=== PATIENT | female | born 1945 | race Caucasian/White ===

== ENCOUNTER 2021-05-06 14:35 | Outpatient (CLI) | payer MEDICARE, SELFPAY ==
--- NOTE | ~2021-05-06 | MR_ITS ---
EXAMINATION: MR knee LT wo con DATE: 05/06/2021 15:31 INDICATION: Left knee pain TECHNIQUE: Magnetic resonance imaging (MRI) of the left knee was performed without intravenous contra st. Sequences included coronal PD-weighted FSE, coronal PD-weighted FS FSE, sagittal T2-weighted FSE , sagittal PD-weighted FS FSE and axial PD weighted fat saturated FSE. COMPARISON: None. FINDINGS: Medial compartment: Radial tear near the posterior root of the medial meniscus. Suggestion of possible additional longitu dinal horizontal tear plane extending medially into the posterior horn which extends towards the intr a-articular surface but does not definitively contact the articular surface to more definitively aleja ita a tear. Small focus of shallow chondral fissuring at the central aspect of the anterior weightbe aring medial femoral condyle. Small focus of marrow edema surrounding a small thin region of low sign al in the immediate subcortical bone at the medial margin of the medial tibial plateau suggesting str ess reaction/fracture related to altered weight distribution resulting from the meniscal tear. Lateral compartment: Lateral meniscus is normal. Articular cartilage is normal. Patellofemoral compartment: Extensive full/near full-thickness cartilage loss along the lateral patellar facet, apical ridge and medial half of the medial patellar facet as well as the lateral trochlea and cephalad two thirds of t he trochlear groove. There are few scattered foci of underlying increased subarticular signal along b oth the patella and trochlea. Small central subchondral osteophyte at the site of a small focus of ch ondral ulceration at the inferolateral aspect of the medial trochlea. Ligaments and tendons: Anterior and posterior cruciate ligaments are normal. The medial collateral ligament and fibular addie ateral ligament complex are normal. The extensor mechanism is normal. The visualized medial and later al hamstring tendons as well as the iliotibial band are normal. Fluid: Small left knee joint effusion in the medial and lateral gutters of the suprapatellar pouch. 8 mm loo se osteochondral body within a small Xie's cyst. No intra-articular loose osteochondral bodies iden tified. Osseous/other: Normal marrow signal aside from the previously noted subarticular signal changes in the patellofemora l compartment and the likely stress reaction/subarticular stress fracture at the medial tibial platea u. No pathologic marrow replacing process. IMPRESSION: 1. Tear at the posterior horn of the medial meniscus including a radial component near the posterior root and possible longitudinal horizontal tear plane extending more medially in the posterior horn. 2. 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 3. Mild osteoarthritis in the medial compartment with single small focus of moderate grade chondromal acia. 4. Marrow edema surrounding a small region of decreased signal in the immediately subarticular bone m edial rim of the medial tibial plateau which suspicious for stress injury/subarticular stress fractur e related to altered weight distribution resulting from the meniscal tear. Reviewed, dictated and finalized at location A. EACH ANALYST IMPRESSION: 1. Tear at the posterior horn of the medial meniscus including a radial compone nt near the posterior root and possible longitudinal horizontal tear plane exte nding more medially in the posterior horn. 2. Severe patellofemoral osteoarthritis with extensive high-grade chondromalaci a. 3. Mild osteoarthritis in the medial compartment with single small focus of mod erate grade chondromalacia. 4. Marrow edema surrounding a small region of decreased signal in the immediate ly subarticular bone medial
== END 2021-05-06 14:36 | disposition home or self-care (01) ==
LOC: ANHIMG 14:39
PROVIDERS: PCP Internal Medicine; Visit Provider Nurse Practitioner
DX: S83.242A Other tear of medial meniscus, current injury, left knee, initial encounter (principal); X58.XXXA Exposure to other specified factors, initial encounter; M17.12 Unilateral primary osteoarthritis, left knee
CPT/HCPCS: 73721

== ENCOUNTER 2022-03-18 10:00 | Outpatient (CLI) | payer MEDICARE, SELFPAY ==
[2022-03-18 18:59] LABS: Basophils Percent Auto 0.4 % (0.2-1.2); Eosinophils Absolute Auto 0.1 K/mm3 (0-0.3); Eosinophils Percent Auto 0.9 % (0-4.4); Hemoglobin 13.7 g/dL (12.0-15.0); Immature Granulocyte Absolute 0.02 K/mm3 (0.00-0.031); Immature Granulocyte Percent A 0.3 % (0-0.5); Lymphocytes Percent Auto 30.8 % (18.3-44.2); Mean Corpuscular HGB Conc 31.9 g/dl (32-36); Mean Corpuscular Hemoglobin 29.1 pg (26-34); Mean Corpuscular Volume 91.5 fl (80-100); Mean Platelet Volume 12.3 fl (7.4-10.4); Monocytes Absolute Auto 0.6 K/mm3 (0.1-0.6); Neutrophils Absolute Auto 4.5 K/mm3 (1.3-6.7); Neutrophils Percent Auto 59.6 % (45.5-73.1); Platelet Count Result 283 k/mm3 (150-375); Red Cell Distribution Width 13.5 % (11.5-14.5); White Blood Count 7.5 K/mm3 (4.5-10.0)
[2022-03-18 19:17] LABS: Alanine Aminotransferase 22 U/L (6-35); Albumin Level 4.7 g/dL (3.5-5.1); Alkaline Phosphatase 99 U/L (38-126); Anion Gap 11 mmol/L (8-16); Aspartate Amino Transferase 41 U/L (14-36); Bilirubin,Total 0.5 mg/dL (0.2-1.3); Blood Urea Nitrogen 22 mg/dL (7-17); Calcium 9.7 mg/dL (8.4-10.2); Carbon Dioxide 29 mmol/L (22-30); Chloride 100 mmol/L (98-107); Cholesterol 244 mg/dL (0-200); Estimated Glomerular Filt Rate 54; Glucose 120 mg/dL (65-110); HDL Direct 64 mg/dL; Potassium 4.8 mmol/L (3.4-5.0); Sodium 140 mmol/L (137-145); Triglycerides 174 mg/dL (<150)
[2022-03-18 19:29] LABS: LDL Cholesterol Direct 115 mg/dL
[2022-03-18 20:55] LABS: Hemoglobin A1C 6.8 % (<5.7)
[2022-03-19 00:10] LABS: Vitamin D 25 Hydroxy 42.5 ng/mL
== END 2022-03-18 10:01 | disposition home or self-care (01) ==
LOC: ANHGOSHLAB 10:04
PROVIDERS: PCP Internal Medicine; Visit Provider Nurse Practitioner
DX: E11.40 Type 2 diabetes mellitus with diabetic neuropathy, unspecified (principal); E55.9 Vitamin D deficiency, unspecified; Z13.29 Encounter for screening for other suspected endocrine disorder
CPT/HCPCS: 36415; 80053; 80061; 82306; 83036; 85025

== ENCOUNTER → 2022-03-18 10:18 | Outpatient (CLI) | payer MEDICARE, SELFPAY ==
--- NOTE | ~2022-03-18 | XR_ITS ---
XR lumbar spine 2-3V DATE: 03/18/2022 10:55 INDICATION: Left hip pain, chronic low back pain. No injury. TECHNIQUE: AP, lateral, coned lateral lumbosacral views COMPARISON: None FINDINGS: There is diffuse osteopenia. There is mild thoracolumbar levoscoliosis. There is a transitional fifth lumbar vertebra with sacralization on the left and lumbarization on the right. This may be a source of chronic low back pain. There is degenerative change at the apophyseal joints with associated minimal grade 1 anterolisthesis at L3-4. There is mild degenerative disc disease at L3-4. There is severe degenerative disc disease at L4-5, with minimal associated retrolisthesis. The sacroiliac joints are intact. IMPRESSION: Transitional lumbosacral vertebra Degenerative disc disease, but is severe at L4-5 Osteopenia Mild scoliosis Reviewed, dictated and finalized at location B. LITY ENGINEER
--- NOTE | ~2022-03-18 | XR_ITS ---
XR hip LT min 2V DATE: 03/18/2022 10:54 INDICATION: Left hip pain. No injury. TECHNIQUE: AP and lateral views COMPARISON: 02/10/2019 left hip FINDINGS: No fracture or dislocation, avascular necrosis or bone destruction is detected. Left hip wei int space appears well preserved. Normal alignment at the pubic symphysis and sacral iliac joints. Transitional lumbosacral vertebra and severe degenerative disc disease at L4-5. IMPRESSION: Negative left hip Reviewed, dictated and finalized at location B. LY TECH IMPRESSION: Negative left hip
== END ==
PROVIDERS: PCP Nurse Practitioner; Visit Provider Nurse Practitioner
DX: M25.552 Pain in left hip (principal); M54.50 Low back pain, unspecified; M51.36 Other intervertebral disc degeneration, lumbar region; M85.88 Other specified disorders of bone density and structure, other site; M41.9 Scoliosis, unspecified
CPT/HCPCS: 72100; 73502

== ENCOUNTER → 2022-04-09 07:40 | Outpatient (CLI) | payer MEDICARE, SELFPAY ==
--- NOTE | ~2022-04-09 | MR_ITS ---
MRI of the lumbar spine Clinical History: Back pain Technique: Axial T2-weighted images, and sagittal T1-weighted, T2-weighted, and T2 fat-sat images wer e acquired. COMPARISON: 10/15/2015 Findings: There is no fracture in the lumbar spine. Probable minimal grade 1 anterolisthesis of L3 ov er L4. No focal or otherwise suspicious bone marrow signal abnormality identified. At L1-L2, there is no disc bulge or herniation. There is minimal facet arthropathy. No spinal canal s tenosis or definite neural foraminal narrowing. At L2-L3, there is minimal disc bulge and minimal facet arthropathy. There is probable minimal latera l recess stenosis bilaterally. There is moderate bilateral neural foraminal narrowing. At L3-L4, there is a probable disc protrusion at the right paracentral to right foraminal region with advanced facet arthropathy. These factors contribute to focally severe thecal sac compression. There is moderate to severe right neural foraminal narrowing and minimal left neural foraminal narrowing. At L4-L5, there is a focal disc extrusion at the left foraminal region, with probable underlying mini mal disc bulge. There may be impingement of descending left L5-S1 level nerve root. There is left lat eral recess stenosis. There is moderate left neural foraminal narrowing. Right neural foramen preserv ed. At L5-S1, there is no significant disc bulge or herniation. There is minimal facet joint degenerative change. No spinal canal stenosis or definite neural foraminal narrowing. Paravertebral soft tissues are unremarkable. Impression: Left foraminal disc extrusion at L4-L5, with associated left lateral recess stenosis, moderate left n eural foraminal narrowing, and possible impingement of the descending left L5-S1 level nerve root. Disc protrusion at L4-L5, with associated facet joint degenerative change, resulting in focal severe thecal sac compression and bilateral neural foraminal narrowing, right worse than left. Moderate bilateral neural foraminal narrowing at L2-L3 with probable lateral recess stenosis. Minimal grade 1 anterolisthesis of L3 over L4. Reviewed, dictated and finalized at [facility]. ECTION COORDINATOR Impression: Left foraminal disc extrusion at L4-L5, with associated left lateral recess arian nosis, moderate left neural foraminal narrowing, and possible impingement of th e descending left L5-S1 level nerve root. Disc protrusion at L4-L5, with associated facet joint degenerative change, resu lting in focal severe thecal sac compression and bilateral neural foraminal leanna rowing, right worse than left. Moderate bilateral neural foraminal narrowing at L2-L3 with probable lateral re cess stenosis. Minimal grade 1 anterolisthesis of L3 over L4.
== END ==
PROVIDERS: PCP Internal Medicine; Visit Provider Nurse Practitioner
DX: M51.26 Other intervertebral disc displacement, lumbar region (principal)
CPT/HCPCS: 72148

== ENCOUNTER → 2022-06-09 07:44 | Outpatient (CLI) | payer MEDICARE, SELFPAY ==
--- NOTE | ~2022-06-09 | XR_ITS ---
XR lumbar spine min 4V 06/09/2022 08:44 Indication: Low back pain Procedure: 5 views lumbar spine Comparison: 03/18/2022 Findings: There is a transitional L5 vertebra. There is disc narrowing at all lumbar levels most adva nced at L4-5. There is grade 1 degenerative spondylolisthesis listhesis at L3-4. There is multilevel facet hypertrophy from L3-4 through L5-S1. No acute fracture or traumatic malalignment. Normal lumbar lordosis. No significant scoliosis. Pedicles intact. Sacral foramen are symmetric. Impression: 1: Stable moderate-severe lumbar spondylosis. Reviewed, dictated and finalized at location B. UREMENT ADVISOR Impression: 1: Stable moderate-severe lumbar spondylosis.
== END ==
PROVIDERS: PCP Internal Medicine; Visit Provider Neurological Surgery
DX: M48.061 Spinal stenosis, lumbar region without neurogenic claudication (principal); M47.896 Other spondylosis, lumbar region
CPT/HCPCS: 72110

== ENCOUNTER 2022-07-23 10:00 | Outpatient (RCR) | payer MEDICARE, SELFPAY ==
--- NOTE | 2022-06-25 17:20 | PTOPEVAL1 ---
Assessment and note entered by Ezequiel Rascon, PT, DPT Evaluation Information Assessment Status Evaluation Diagnosis Low back pain Onset chronic Subjective Information Pt states a long history of low back pain and complete prior PT in 2017. She states she still has pain but it comes and goes. She states she does not think therapy will work for her. She states last year she tore her meniscus in her L knee, while doing core exercises last year. Pt states she saw neuro who referring her to therapy. She states if therapy does not work she will follow up with pain management. She states she can touch her toes but cannot stand and bend over to wash dished. Reported Pain Level Pain Score 0: Self Report Assessment PT Clinical Summary Faviola presents to therapy today for her initial evaluation with a diagnosis of low back pain. Today she demonstrates good LE strength and ROM. She demonstrates good functional mobility but her standing and walking tolerance is limited d/t pain . Today she demonstrates moderated amounts of tightness and increased soft tissue density throughout her entire R glute region and lumbar paraspinals. She demonstrates decreased core strength with a poor ability to engage her core during transfers or functional tasks. Skilled physical therapy services are indicated to address the soft tissue restrictions, improve her core strength, education on body mechanics with functional lifts, and to promote unlimited mobility. Plan of Care Interventions Electrical Stimulation,Gait Training,Hot Pack/Cold Pack,Manual Therapy,Neuro Re-education,Patient/ Caregiver Educati,Therapeutic Activities, Therapeutic Exercise PT Services Indicated Yes Treatment Frequency and 2x/wk for 4 wks Duration These treatments will address the objective and functional deficits as defined above. The patient will be advanced safely and appropriately in order for the patient to progress towards his/her prior level of function. Additional exercises will be introduced and as well as a comprehensive home exercise program upon discharge, if needed, ?to ensure carryover of functional gains achieved in the clinic. This treatment plan has been reviewed and agreement upon by the patient.
--- NOTE | 2022-07-18 08:04 | PCPTNOTE ---
Patient has another appointment this date and has to cancel appointment.
--- NOTE | 2022-07-23 10:36 | PTOPDC ---
Assessment and note entered by Ezequiel Rascon, PT, DPT Evaluation Information Assessment Status Discharge Diagnosis Low back pain Onset chronic Subjective Information Pt states she feels like her leg has gotten stronger since starting therapy. She reports no back flair ups in the last month and was having about 1 a week prior to starting PT. Reported Pain Level Pain Score 0: Self Report Assessment PT Clinical Summary Faviola presents to therapy today for her progress report following 5 visits to treat her low back pain. Today she demonstrates improved LE strength, improved lumbar active ROM, improve body awareness, and improved movement mechanics. She reports no back pain in the last week. She has met or progressed well towards all of her therapy goals and will be discharged at this time to continue her HEP as instructed. Plan of Care PT Services Indicated No
== END 2022-07-23 15:43 | disposition home or self-care (01) ==
LOC: ANHGOSHPT 10:00
PROVIDERS: PCP Internal Medicine; Visit Provider Neurological Surgery
DX: M48.061 Spinal stenosis, lumbar region without neurogenic claudication (principal)
CPT/HCPCS: 97110; 97112; 97140; 97161

== ENCOUNTER 2023-08-25 08:18 | Outpatient (CLI) | payer MEDICARE, SELFPAY ==
--- NOTE | ~2023-08-25 | XR_ITS ---
EXAMINATION: XR chest 2V DATE: 08/25/2023 09:19 INDICATION: Hypertension. Spinal stenosis. Preop. TECHNIQUE: Frontal and lateral views of the chest were obtained on 3 radiographs. COMPARISON: Chest 2 views 09/22/2015 FINDINGS: There is no pneumonia, pleural effusion, or pneumothorax. The heart size is normal. IMPRESSION: 1. No acute cardiopulmonary disease. Reviewed, dictated and finalized at location A.
--- NOTE | 2023-08-25 08:24 | ECG_ITS ---
SEE SCANNED COPY FOR CONFIRMED REPORT. MTDD
[2023-08-25 08:52] LABS: Hemoglobin 12.8 g/dL (12.0-15.0); Mean Corpuscular Hemoglobin 29.3 pg (26-34); Mean Corpuscular Volume 91.5 fl (80-100); Mean Platelet Volume 10.8 fl (7.4-10.4); Platelet Count Result 261 k/mm3 (150-375); Red Blood Count 4.37 M/mm3 (4.2-5.4); Red Cell Distribution Width 13.2 % (11.5-14.5); White Blood Count 8.8 K/mm3 (4.5-10.0)
[2023-08-25 09:03] LABS: Prothrombin Time 13.5 Seconds (11.1-14.7)
[2023-08-25 09:10] LABS: Alanine Aminotransferase 15 U/L (6-35); Albumin Level 4.5 g/dL (3.5-5.1); Alkaline Phosphatase 86 U/L (38-126); Anion Gap 7 mmol/L (4-12); Aspartate Amino Transferase 21 U/L (14-36); Bilirubin,Total 0.6 mg/dL (0.2-1.3); Blood Urea Nitrogen 24 mg/dL (7-17); Carbon Dioxide 27 mmol/L (22-30); Chloride 106 mmol/L (98-107); Estimated Glomerular Filt Rate 48; Glucose 114 mg/dL (65-110); Potassium 4.4 mmol/L (3.4-5.0); Sodium 140 mmol/L (137-145)
== END 2023-08-25 08:19 | disposition home or self-care (01) ==
LOC: ANHSURGERY 08:22
PROVIDERS: PCP Nurse Practitioner; Visit Provider Anesthesiology Pain Medicine
DX: M48.062 Spinal stenosis, lumbar region with neurogenic claudication (principal); M54.9 Dorsalgia, unspecified; E11.59 Type 2 diabetes mellitus with other circulatory complications; I15.2 Hypertension secondary to endocrine disorders; R74.8 Abnormal levels of other serum enzymes
CPT/HCPCS: 36415; 71046; 80053; 85027; 85610; 93005

== ENCOUNTER 2023-10-08 08:27 | Outpatient (CLI) | payer MEDICARE, SELFPAY ==
--- NOTE | ~2023-10-08 | NM_ITS ---
EXAMINATION: NM mireya stress w perfusion DATE: 10/08/2023 10:22 INDICATION: Abnormal EKG TECHNIQUE: Rest images were obtained following intravenous administration of 9.1 mCi Tc99m tetrofosmi n (Myoview). The patient was infused intravenously with Lexiscan (Regadenoson). Then, 30.1 mCi Tc99m tetrofosmin (Myoview) was administered intravenously, and stress images were obtained in the supine p osition. Additional repeat post stress images were obtained in the prone position. Data was reconstru cted into short axis and horizontal and vertical long axis SPECT images. Gated SPECT images were also obtained. COMPARISON: None. FINDINGS: There is likely breast attenuation artifact along the anterior and anterolateral roth on b oth the rest and stress imaging obtained in the supine position which normalizes on the post stress i mages obtained in the prone position. There is additional likely diaphragmatic attenuation artifact s een on the post stress but not the rest images obtained in the supine position which similarly largel y normalizes on the post stress imaging obtained in the prone position. There is a persistent small m ild perfusion defect at the apex and inferoapical segment on the prone post stress imaging which coul d represent mild ischemia. The relative decreased perfusion however is not evident at this location o n the gated post stress imaging during systole and favor additional residual attenuation artifact. Th ere is normal left ventricular chamber size, wall motion and ejection fraction. Left ventricular eje ction fraction measures >70%. IMPRESSION: 1. Extensive breast and diaphragmatic attenuation artifact on the imaging obtained in the supine posi tion which complicates interpretation. Post stress imaging obtained in the prone position demonstrate only a small mild perfusion defect at the apical and inferoapical segment which for reasons as detai led above favor residual attenuation artifact over mild ischemia. 2. Left ventricular ejection fraction measuring >70%. Reviewed, dictated and finalized at location A. IMPRESSION: 1. Extensive breast and diaphragmatic attenuation artifact on the imaging obtai isaiah in the supine position which complicates interpretation. Post stress imagin g obtained in the prone position demonstrate only a small mild perfusion defect at the apical and inferoapical segment which for reasons as detailed above fav or residual attenuation artifact over mild ischemia. 2. Left ventricular ejection fraction measuring >70%.
--- NOTE | 2023-10-08 09:01 | EST_ITS ---
Patient Info Name: Faviola De La Cruz Age: 78 years : 1945 Gender: Female Ht: 66 in Wt: 233 lbs BSA: 2.27 m2 HR: 74 bpm BP: 141 / 93 mmHg Heart Rhythm: Sinus Rhythm Exam Date: 10/08/2023 9:17 AM Exam Location: Echo Lab Patient Status: Outpatient Admit Date: 10/08/2023 Staff Ordering Physician: Maureen Norwood NP Attending Provider: Maureen Norwood NP Exercise Technologist: Jannie Jensen CT Exercise Physician: Rodney Pedroza DO Exam Type: CA stress mireya w NM Study Info Indications R94.31 - Abnormal electrocardiogram ECG EKG A regadenoson stress test was performed. Summary 1. 1. Negative lexiscan stress test for ischemic ST changes by ECG criteria. 2. 2. Stable hemodynamics throughout the test. 3. 3. Nuclear scan to follow and will be reported separately. Please correlate with it. 4. 4. Patient informed of the above results. Protocol: Lexiscan Stress ECG Details Stage: REST Duration (min): 1 min : 3 sec HR (bpm): 76 SBP (mmHg): 141 DBP (mmHg): 93 Stage: REST Duration (min): 6 min : 31 sec HR (bpm): 68 SBP (mmHg): 141 DBP (mmHg): 93 Stage: STAGE 1 Duration (min): 1 min : 0 sec HR (bpm): 85 SBP (mmHg): 141 DBP (mmHg): 93 Stage: RECOVERY Duration (min): 1 min : 0 sec HR (bpm): 82 SBP (mmHg): 141 DBP (mmHg): 93 Stage: RECOVERY Duration (min): 2 min : 0 sec HR (bpm): 80 SBP (mmHg): 141 DBP (mmHg): 93 Stage: RECOVERY Duration (min): 3 min : 0 sec HR (bpm): 79 SBP (mmHg): 115 DBP (mmHg): 88 Stage: RECOVERY Duration (min): 3 min : 49 sec HR (bpm): 83 SBP (mmHg): 115 DBP (mmHg): 88 Rest HR: 68 bpm Peak HR: 86 bpm Rest Sys BP: 141 mmHg Peak Sys BP: 115 mmHg Max Pred HR: 143 bpm % Max Pred HR: 60 % Target HR: 122 bpm Max RPP: 9,890 bpm*mmHg Termination Reason: Completed protocol Cardiac Symptoms: Shortness of breath Total Time: 1 min : 0 sec Rest Ma BP: 93 mmHg Peak Ma BP: 88 mmHg Total Dose: 0.4 mg Resting ECG Sinus rhythm. Stress ECG No ST changes. Arrhythmias None. Report Signatures
== END 2023-10-08 08:28 | disposition home or self-care (01) ==
PROVIDERS: PCP Nurse Practitioner; Visit Provider Nurse Practitioner
DX: R94.31 Abnormal electrocardiogram [ECG] [EKG] (principal)
CPT/HCPCS: 78452; 93017; A9502; J2785

== ENCOUNTER 2023-10-20 00:35 | Day surgery (SDC) | payer MEDICARE, SELFPAY ==
[2023-10-06 14:14] VITALS: BMI 37.7
[2023-10-20 07:43] VITALS: BP 146/78; PULSE 87; RESP 18; TEMP 36.1; O2SAT 100
[2023-10-20 08:00] LABS: Glucose Point of Care 125 mg/dl (65-105)
[2023-10-20] MEDS: LACTATED RINGERS 1,000 ML 150 ML IV CONT (08:00)
--- NOTE | 2023-10-20 08:47 | WPDANESEPPF ---
Anes - Initial Pre Proc Eval Procedure: Operation Date: 10/20/23 09:00 Proposed Procedures p Colonoscopy - Jeremi Artis MD Date/Time: 10/20/23 08:47 Surgeon: Jeremi Artis MD Pre Op Diagnosis: Personal history colon polyps Patient Data Age: 78 Gender: F Height: 1.68 m Weight: 106.7 kg Last Vital Signs Temp 97 F L 10/20/23 07:43 Pulse 87 10/20/23 07:43 Resp 18 10/20/23 07:43 BP 146/78 H 10/20/23 07:43 Pulse Ox 100 10/20/23 07:43 O2 Del Method Room Air 10/20/23 07:43 Allergies Allergy/AdvReac Type Severity Reaction Status Date / Time shellfish derived Allergy Intermediate Hives Verified 10/20/23 07:43 Sulfa (Sulfonamide Allergy Unknown as child Verified 10/20/23 07:43 Antibiotics) Home Medications Medication Instructions Recorded Confirmed Type omeprazole 20 mg capsule,delayed 20 mg PO DAILY 03/24/19 10/06/23 History release cholecalciferol (vitamin D3) 25 25 mcg PO DAILY 08/01/19 10/06/23 History mcg (1,000 unit) capsule methimazole 5 mg tablet (Tapazole) 5 mg PO .COMPLEX #0 tabs 08/01/19 10/06/23 Rx magnesium 200 mg tablet 400 mg PO DAILY 05/10/21 10/06/23 History B-complex with vitamin C 1 cap PO DAILY 03/18/22 10/06/23 History acetaminophen 650 mg 650 mg PO Q12H PRN Pain 08/21/23 10/06/23 History tablet,extended release atorvastatin 10 mg tablet 10 mg PO QHS #90 tabs 09/03/23 10/06/23 Rx lisinopril 5 mg tablet 5 mg PO DAILY #90 tabs 09/25/23 10/06/23 Rx metformin 500 mg tablet See Rx Instructions PO .COMPLEX 09/28/23 10/06/23 Rx #180 tabs Laboratory Tests 10/20/23 07:56 POC Capillary Glucose 125 H mg/dl (65-105) Patient hx anesthesia problems: none Family hx anesthesia problems: none Results Review: All pre-operative results and documents have been reviewed as part of the pre-operative evaluation. [facility] Past Medical History Medical History Arthritis Back pain Bilateral cataracts High blood pressure History of back problems History of thyrotoxicosis Nontoxic multinodular goiter Obesity Osteopenia Tear of meniscus of left knee Type 2 diabetes mellitus with diabetic neuropathy, unspecified Surgical History Surgical History History of colonoscopy (~2013) History of hysterectomy 12/2015 and 03/01/2020. Dr. Murray Mcpherson. History of tonsillectomy (~1951) History of tubal ligation (~1976) Family History Family History Mother Carcinoma of colon Patient's mother is Diabetes mellitus Sibling Family history of diabetes mellitus in first degree relative Diabetes mellitus Family history of malignant neoplasm of testis Father Patient's father is Other Family history of obesity Social History Social History Smoking status: Never smoker Alcohol intake: current Drinks per week: 1 Alcohol use details: 5 x per year Substance use: never Substance use type: does not use Lack of Transportation: No Lack of Food: Never True Current Housing: I Have Housing Concerned About Future Housing: No Difficulty Paying Gas/Electric Bills: No Difficulty Paying for Meds: No Currently Unemployed: No Education: High School Diploma/GED Difficulty w/ Childcare or Family Care: No Living arrangements: with family Occupation/Education: retired Gender identity (if verbalized by the patient): Female Spiritual care concerns: No Anes - Eval Final PreProcedure Day of Procedure 10/20/23 08:47 Patient weight: obese Heart: regular rate and rhythm Lungs: clear to auscultation Airway: Mallampati scale class III Neurological: alert and oriented Last oral intake: >/= 8 hours ASA classification: III Emergent: no Anesthetic plan: proceed An
--- NOTE | 2023-10-20 08:48 | PM.HPGS ---
History of Present Illness History of Present Illness Consent: Risks, benefits, and alternatives have been discussed and questions answered. Patient agrees to proceed with procedure. Chief complaint: Personal history colon polyps Narrative: Faviola De La Cruz is a 78 year old female with colon polyp 10 years ago Review of Systems Review of Systems: All systems reviewed & are unremarkable except as noted in HPI and below PMFSH Past Medical History Medical History Arthritis Back pain Bilateral cataracts High blood pressure History of back problems History of thyrotoxicosis Nontoxic multinodular goiter Obesity Osteopenia Tear of meniscus of left knee Type 2 diabetes mellitus with diabetic neuropathy, unspecified Surgical History Surgical History History of colonoscopy (~2013) History of hysterectomy 12/2015 and 03/01/2020. Dr. Murray Mcpherson. History of tonsillectomy (~1951) History of tubal ligation (~1976) Family History Family History Mother Carcinoma of colon Patient's mother is Diabetes mellitus Sibling Family history of diabetes mellitus in first degree relative Diabetes mellitus Family history of malignant neoplasm of testis Father Patient's father is Other Family history of obesity Social History Social History Smoking status: Never smoker Alcohol intake: current Drinks per week: 1 Alcohol use details: 5 x per year Substance use: never Substance use type: does not use Lack of Transportation: No Lack of Food: Never True Current Housing: I Have Housing Concerned About Future Housing: No Difficulty Paying Gas/Electric Bills: No Difficulty Paying for Meds: No Currently Unemployed: No Education: High School Diploma/GED Difficulty w/ Childcare or Family Care: No Living arrangements: with family Occupation/Education: retired Gender identity (if verbalized by the patient): Female Spiritual care concerns: No Meds Home Medications and Allergies Home Medications Medication Instructions Recorded Confirmed Type omeprazole 20 mg capsule,delayed 20 mg PO DAILY 03/24/19 10/06/23 History release cholecalciferol (vitamin D3) 25 25 mcg PO DAILY 08/01/19 10/06/23 History mcg (1,000 unit) capsule methimazole 5 mg tablet (Tapazole) 5 mg PO .COMPLEX #0 tabs 08/01/19 10/06/23 Rx magnesium 200 mg tablet 400 mg PO DAILY 05/10/21 10/06/23 History B-complex with vitamin C 1 cap PO DAILY 03/18/22 10/06/23 History acetaminophen 650 mg 650 mg PO Q12H PRN Pain 08/21/23 10/06/23 History tablet,extended release atorvastatin 10 mg tablet 10 mg PO QHS #90 tabs 09/03/23 10/06/23 Rx lisinopril 5 mg tablet 5 mg PO DAILY #90 tabs 09/25/23 10/06/23 Rx metformin 500 mg tablet See Rx Instructions PO .COMPLEX 09/28/23 10/06/23 Rx #180 tabs Allergies Allergy/AdvReac Type Severity Reaction Status Date / Time shellfish derived Allergy Intermediate Hives Verified 10/20/23 07:43 Sulfa (Sulfonamide Allergy Unknown as child Verified 10/20/23 07:43 Antibiotics) Vital Signs Vital Signs - 24 hr 10/20/23 07:43 Temperature 97 F L Pulse Rate 87 Respiratory Rate 18 Blood Pressure 146/78 H Pulse Oximetry 100 Oxygen Delivery Room Air Exam Const: General: comfortable and no acute distress HENMT: Face/Nose/Sinus: Normal nares present Eyes: General: appearance normal, both eyes and all related structures Neck: Neck: no JVD Resp: Auscultation: clear to auscultation bilaterally Cardio: Rate: regular rate Rhythm: regular rhythm GI: Inspection: non-distended GI Palp: Yes Soft to palpation Skin: General skin exam: normal color Neuro: General: gait normal Speech: normal speech Extrem: General: normal to inspecti
[2023-10-20 09:08] VITALS: BP 116/66; PULSE 68; RESP 18; O2SAT 97
[2023-10-20 09:18] VITALS: BP 123/76; PULSE 60; RESP 18; O2SAT 100
[2023-10-20 09:28] VITALS: BP 149/72; PULSE 65; RESP 18; O2SAT 96
== END 2023-10-20 09:45 | disposition home or self-care (01) ==
PROVIDERS: PCP Nurse Practitioner; Referring Provider Internal Medicine; Visit Provider Internal Medicine Gastroenterology
PROC: 0DJD8ZZ Inspection of Lower Intestinal Tract, Via Natural or Artificial Opening Endoscopic (ICD-10-PCS; CPT 45378; principal; 2023-10-20 09:00)
DX: Z12.11 Encounter for screening for malignant neoplasm of colon (principal); D12.3 Benign neoplasm of transverse colon; D12.5 Benign neoplasm of sigmoid colon; K64.8 Other hemorrhoids; I10 Essential (primary) hypertension; E11.9 Type 2 diabetes mellitus without complications; E66.9 Obesity, unspecified; Z68.38 Body mass index [BMI] 38.0-38.9, adult; Z79.84 Long term (current) use of oral hypoglycemic drugs; Z98.890 Other specified postprocedural states; Z98.51 Tubal ligation status; Z80.43 Family history of malignant neoplasm of testis; Z80.0 Family history of malignant neoplasm of digestive organs
CPT/HCPCS: 45385; 82948; 88305; J2704; J7120

== ENCOUNTER 2023-12-14 01:30 | Day surgery (SDC) | payer MEDICARE, SELFPAY ==
--- NOTE | 2023-12-11 11:15 | PC.NURSE ---
Report to the Outpatient Waiting Room, entrance under the green pavilion located off [facility], at time __6:00 AM on date 12/14/23 . Planned Procedure Time: _7:30 AM .? Time changes happen often and if your time is changed the preop area will call you the afternoon before. - You and your visitor will be asked to self-screen and do not enter if you have any COVID symptoms. Please call surgeon if you need to reschedule. - A mask is optional within the hospital at this time. NOTHING TO EAT OR DRINK AFTER MIDNIGHT PER DR DUBON Take only the following medications with a SIP of water on the morning of surgery: __METHIMAZOLE DO NOT STOP ANY OF YOUR OTHER PRESCRIPTION MEDICATIONS PRIOR TO SURGERY EXCEPT THE FOLLOWING Medications to discontinue per physician ____HOLD ALL VITAMINS AND SUPPLEMENTS 3 DAYS PRE OP STATES LAST DOSE 12/11/23___ Please no make-up, nail wolof, hairspray, perfume, deodorant, or body powder the day of surgery.? No jewelry (including any body piercings) or valuables the day of surgery, leave them at home.? Please take a shower or bath the night before AND the morning of, surgery with an antibacterial soap.PER DR DUBON? Wear comfortable, loose fitting clothing.? Children are encouraged to wear pajamas. - Jewelry must be removed prior to entering the operating room.? Rings and piercings that are not removed may be cut off. - The hospital will not accept responsibility for valuables.? - Please leave all valuables, including medications, at home the day of surgery. If you are going home after surgery, a licensed oil truck driver must drive you home.? - NO public transportation without another adult if you receive anesthesia. - We recommend that an adult stay with you for 24 hours following discharge. - We also recommend that you do not drive, make important decision, drink alcoholic beverages, or take any drugs that were not prescribed by your health care provider for at least 24 hours after your discharge time. For Pediatric surgeries, we recommend two adults accompany the child home. Follow any additional instructions given to you from your surgeon. Telephone instructions given to __PATIENT and asked if any additional questions and then verbalized understanding. Patient advised to call surgeon office or pre surgery nurse liaison [phone] if any additional questions.
[2023-12-11 11:25] VITALS: BMI 37.5
[2023-12-14] VITALS (8 sets, daily range): BP systolic 139–153; BP diastolic 59–86; PULSE 66–93; RESP 14–20; TEMP 36.2; O2SAT 98–100; BMI 38.7
--- NOTE | ~2023-12-14 | XR_ITS ---
EXAMINATION: XR fluoroscopy no charge DATE: 12/14/2023 09:14 INDICATION: Lumbar spondylosis. TECHNIQUE: 18 intraoperative fluoroscopic views of the lumbar spine were obtained. I was not present. Fluoroscopy exposure time was 4 minutes and 33 seconds. COMPARISON: Lumbar spine radiographs 06/09/2022 FINDINGS: Instruments overlie the posterior elements of the lumbar spine. There is severe lumbar spon dylosis. IMPRESSION: 1. Severe lumbar spondylosis. Reviewed, dictated and finalized at location A.
--- NOTE | 2023-12-14 05:35 | PM.HPGS ---
History of Present Illness History of Present Illness Consent: Risks, benefits, and alternatives have been discussed and questions answered. Patient agrees to proceed with procedure. Chief complaint: Lumbar stenosis with neurogenic claudication Narrative: Faviola De La Cruz is a 78 year old female with chronic, recalcitrant and disabling bilateral lumbar and lower extremity pain secondary to degenerative spondylosis with stenosis of the lumbar spine and ligamentum flavum hypertrophy with failure to respond to aggressive conservative measures including PT, oral and topical analgesics, opioid and nonopioid analgesics, rest, time and activity/behavioral modification over the past 1-2 years who presents for bilateral L2-3, L3-4 minimally invasive lumbar decompression with possible epidurogram under fluoroscopic guidance. Review of Systems Review of Systems: Patient denies any new infectious, allergic, cardiopulmonary, neurologic or constitutional symptoms or changes in activity tolerance or exercise capacity including new or progressive SOB/HAQUE, peripheral edema, productive cough, dysuria, nausea/vomiting, diarrhea, weight change, fevers/chills/night sweats, new or progressive neurologic deficit, cognitive or mood changes since last seen, except as documented in the HPI. All systems reviewed & are unremarkable except as noted in HPI and below PMFSH Past Medical History Medical History Arthritis Back pain Bilateral cataracts High blood pressure History of back problems History of thyrotoxicosis Nontoxic multinodular goiter Obesity Osteopenia Tear of meniscus of left knee Type 2 diabetes mellitus with diabetic neuropathy, unspecified Surgical History Surgical History History of colonoscopy (~2013) History of hysterectomy 12/2015 and 03/01/2020. Dr. Murray Mcpherson. History of tonsillectomy (~1951) History of tubal ligation (~1976) Family History Family History Mother Carcinoma of colon Patient's mother is Diabetes mellitus Sibling Family history of diabetes mellitus in first degree relative Diabetes mellitus Family history of malignant neoplasm of testis Father Patient's father is Other Family history of obesity Social History Social History Smoking status: Never smoker Alcohol intake: current Drinks per week: 1 Alcohol use details: 5 x per year Substance use: never Substance use type: does not use Lack of Transportation: No Lack of Food: Never True Current Housing: I Have Housing Concerned About Future Housing: No Difficulty Paying Gas/Electric Bills: No Difficulty Paying for Meds: No Currently Unemployed: No Education: High School Diploma/GED Difficulty w/ Childcare or Family Care: No Living arrangements: with family Occupation/Education: retired Gender identity (if verbalized by the patient): Female Spiritual care concerns: No Meds Home Medications and Allergies Home Medications Medication Instructions Recorded Confirmed Type omeprazole 20 mg capsule,delayed 20 mg PO DAILY 03/24/19 12/11/23 History release cholecalciferol (vitamin D3) 25 25 mcg PO DAILY 08/01/19 12/11/23 History mcg (1,000 unit) capsule methimazole 5 mg tablet (Tapazole) 5 mg PO .COMPLEX #0 tabs 08/01/19 12/11/23 Rx magnesium 200 mg tablet 400 mg PO DAILY 05/10/21 12/11/23 History B-complex with vitamin C 1 cap PO DAILY 03/18/22 12/11/23 History acetaminophen 650 mg 650 mg PO Q12H PRN Pain 08/21/23 12/11/23 History tablet,extended release atorvastatin 10 mg tablet 10 mg PO QHS #90 tabs 09/03/23 12/11/23 Rx lisinopril 5 mg tablet 5 mg PO DAILY #90 tabs 09/25/23 12/11/23 Rx metformin 500 mg tablet See Rx Instructions PO .COMPLEX 09/28/23 12/11/23
--- NOTE | 2023-12-14 05:39 | WPDHPUPDATE1 ---
History and Physical Update Update Date/Time: 12/14/23 05:39 History and Physical has been reviewed, including an updated exam of the patient. There are NO changes in the patient's condition. Risks, benefits, and alternatives have been discussed and questions answered. Patient agrees to proceed with procedure.
--- NOTE | 2023-12-14 05:45 | W.PM.PROC2 ---
Procedure Note - Detailed Date of Procedure 12/14/23 Pre-op Diagnosis Lumbar spinal stenosis with neurogenic claudication Post-op Diagnosis Same Procedure Performed [Bilateral] Minimally Invasive Lumbar Decompression (MILD) at [L3-4, L4-5] [with Intra-operative Interlaminar Epidural Access for Epidurogram] under Fluoroscopic Guidance. Surgeon Shashank Yeboah MD Anesthesia Other ([Moderate IV sedation/MAC] with local anesthetic infiltration in the prone position) Description of Procedure INFORMED CONSENT: Risks, benefits, and alternatives to the procedure were discussed in detail with the patient who expressed explicit understanding and consent to proceed. Risks discussed with the patient included but were not limited to risk of serious local or systemic infection, bleeding/bruising, epidural hematoma, dural puncture or tear resulting in CSF leak and acute or chronic post-dural puncture headache, scarring/deformity, immediate or delayed allergic reaction, decreased mobility, failure to treat pain, inadvertent neurologic injury resulting in increased pain, weakness/paralysis or numbness, inadvertent organ injury, need for additional surgery, allergic reaction, heart attack, stroke, seizure, coma, . Anesthetic risks were also briefly discussed by myself and the technical marketing consultant. The patient expressed understanding and consent to proceed, agreeing that potential benefits outweigh risk of harm. All materials required for the procedure were immediately available prior to procedure start. Site and side were confirmed with the patient, compared carefully to the patient chart and consent, and marked prior to transport to the operating room. Appropriate time out procedure was performed per protocol prior to procedure start. PROCEDURE IN DETAIL: The patient was brought to the operative suite and placed in the prone position. Appropriate ASA standard monitors were attached. Anesthesia was initiated without difficulty or event. Eyes were protected. Pressure points were padded with joints in neutral position. When appropriate, breasts and genitals were evaluated and protected. Eyes were checked and were free from undue pressure. Skin overlying the procedure site was marked with sterile marker. Surgical area was prepared in a typical sterile fashion with ChloraPrep and allowed to dry for at least 3 minutes prior to sterilely draping the surgical site. The lumbar spine was identified in the AP fluoroscopic view with slight cephalad tilt perfectly aligning the endplates at the targeted levels with spinous processes bisecting the transpedicular plane. After identifying the intended incision site approximately 1.5 levels inferior to the level of interest, the area was anesthetized by infiltration with no more than 10ml of a 1:1 admixture of 0.5% PF bupivacaine with epinephrine and 2% PF lidocaine with epinepherine via a 27-gauge needle after negative aspiration. A 22-gauge spinal needle was used to provide additional and adequate local anesthesia to the level of the interspinous ligament, ligamentum flavum and the periosteum of the lamina at the intended treatment levels. [A 4-inch [20] gauge Tuohy epidural access needle was advanced at the midline within the intervertebral foramen at [L4-5] under intermittent fluoroscopy in the AP view until appropriate loss of resistance to air was identified using a plastic loss of resistance syringe. Appropriate depth was confirmed in the lateral view demonstrating needle tip within the posterior epidural space just past the anterior border of the lumbar lamina. Approximately [5]ml of [Isovue 300M] intravenous contrast was injected in the lateral and contralateral oblique views after negative aspiration for CSF, blood or other bodily fluids, showing expected posterior epidural spread without evidence of washout, intrathecal or intravascular injection. In the contralateral oblique view relative to the surgery site, scalloping associated
--- NOTE | 2023-12-14 05:54 | W.PM.PROC2 ---
Procedure Note - Detailed Date of Procedure 12/14/23 Pre-op Diagnosis Lumbar stenosis with neurogenic claudication Post-op Diagnosis Same Procedure Performed Bilateral Minimally Invasive Lumbar Decompression (MILD) at L2-3, L3-4 under Fluoroscopic Guidance. Surgeon Shashank Yeboah MD Loan Representative None Anesthesia Other ([Moderate IV sedation/MAC] with local anesthetic infiltration in the prone position) Description of Procedure INFORMED CONSENT: Risks, benefits, and alternatives to the procedure were discussed in detail with the patient who expressed explicit understanding and consent to proceed. Risks discussed with the patient included but were not limited to risk of serious local or systemic infection, bleeding/bruising, epidural hematoma, dural puncture or tear resulting in CSF leak and acute or chronic post-dural puncture headache, scarring/deformity, immediate or delayed allergic reaction, decreased mobility, failure to treat pain, inadvertent neurologic injury resulting in increased pain, weakness/paralysis or numbness, inadvertent organ injury, need for additional surgery, allergic reaction, heart attack, stroke, seizure, coma, . Anesthetic risks were also briefly discussed by myself and the educational advisor. The patient expressed understanding and consent to proceed, agreeing that potential benefits outweigh risk of harm. All materials required for the procedure were immediately available prior to procedure start. Site and side were confirmed with the patient, compared carefully to the patient chart and consent, and marked prior to transport to the operating room. Appropriate time out procedure was performed per protocol prior to procedure start. PROCEDURE IN DETAIL: The patient was brought to the operative suite and placed in the prone position. Appropriate ASA standard monitors were attached. Anesthesia was initiated without difficulty or event. Eyes were protected. Pressure points were padded with joints in neutral position. When appropriate, breasts and genitals were evaluated and protected. Eyes were checked and were free from undue pressure. Skin overlying the procedure site was marked with sterile marker. Surgical area was prepared in a typical sterile fashion with ChloraPrep and allowed to dry for at least 3 minutes prior to sterilely draping the surgical site. The lumbar spine was identified in the AP fluoroscopic view with slight cephalad tilt perfectly aligning the endplates at the targeted levels with spinous processes bisecting the transpedicular plane. After identifying the intended incision site approximately 1.5 levels inferior to the level of interest, the area was anesthetized by infiltration with no more than 10ml of a 1:1 admixture of 0.5% PF bupivacaine with epinephrine and 2% PF lidocaine with epinepherine via a 27-gauge needle after negative aspiration. A 22-gauge spinal needle was used to provide additional and adequate local anesthesia to the level of the interspinous ligament, ligamentum flavum and the periosteum of the lamina at the intended treatment levels. In the AP view, a #11 scalpel blade was used to create a single stab incision at the intended incision site on the targeted side. The Vertos MILD kit was opened and the included cannula and trocar assembly was advanced through the incision to contact the midportion of the right lamina just adjacent to the spinous process at L4. Once seated, the lateral view was used to gauge depth demonstrating the most anterior tip of the trocar posterior to the epidural space at all times. The conveyor line bakery worker-provided cannula stabilizer was placed over the trocar flush to the patient's lumbar flank. Cannula obturator with handle was removed. Included depth guide was then attached to the insertion port on the cannula and set to an initial depth of 15 mm. The bone rongeur was advanced to the depth of the lumbar lamina at the targeted level. Depth gauge was then adjusted allowing sruthi
[2023-12-14] MEDS: LACTATED RINGERS 1,000 ML 30 ML IV CONT ×2 (06:35→09:33)
[2023-12-14 06:53] LABS: Glucose Point of Care 113 mg/dl (65-105)
[2023-12-14 06:59] LABS: Anion Gap 9 mmol/L (4-12); Blood Urea Nitrogen 30 mg/dL (7-17); Calcium 9.7 mg/dL (8.4-10.2); Carbon Dioxide 27 mmol/L (22-30); Chloride 102 mmol/L (98-107); Estimated CRCL calculation 51 ml/min; Estimated Glomerular Filt Rate 54; Glucose 117 mg/dL (65-110); Potassium 4.2 mmol/L (3.4-5.0); Sodium 138 mmol/L (137-145)
--- NOTE | 2023-12-14 07:03 | WPDANESEPPF ---
Anes - Initial Pre Proc Eval Procedure: Operation Date: 12/14/23 07:30 Proposed Procedures p L2-3, L3-4, Minimally Invasive Lumbar Decompression Under Fluoroscopic Guidance with Possible Epidurogram - Shashank Yeboah MD Date/Time: 12/14/23 07:03 Surgeon: Shashank Yeboah MD Pre Op Diagnosis: Lumbar stenosis with neurogenic claudication Patient Data Age: 78 Gender: F Height: 1.68 m Weight: 105.7 kg Allergies Allergy/AdvReac Type Severity Reaction Status Date / Time shellfish derived Allergy Intermediate Hives Verified 12/14/23 06:54 Sulfa (Sulfonamide Allergy Unknown as child Verified 12/14/23 06:54 Antibiotics) Home Medications Medication Instructions Recorded Confirmed Type omeprazole 20 mg capsule,delayed 20 mg PO DAILY 03/24/19 12/11/23 History release cholecalciferol (vitamin D3) 25 25 mcg PO DAILY 08/01/19 12/11/23 History mcg (1,000 unit) capsule methimazole 5 mg tablet (Tapazole) 5 mg PO .COMPLEX #0 tabs 08/01/19 12/11/23 Rx magnesium 200 mg tablet 400 mg PO DAILY 05/10/21 12/11/23 History B-complex with vitamin C 1 cap PO DAILY 03/18/22 12/11/23 History acetaminophen 650 mg 650 mg PO Q12H PRN Pain 08/21/23 12/11/23 History tablet,extended release atorvastatin 10 mg tablet 10 mg PO QHS #90 tabs 09/03/23 12/11/23 Rx lisinopril 5 mg tablet 5 mg PO DAILY #90 tabs 09/25/23 12/11/23 Rx metformin 500 mg tablet See Rx Instructions PO .COMPLEX 09/28/23 12/11/23 Rx #180 tabs cyclobenzaprine 5 mg tablet 5 mg PO TID PRN muscle spasm 7 12/14/23 Rx days #20 tabs hydrocodone 5 mg-acetaminophen 325 1 tablet PO Q8H PRN pain 7 days 12/14/23 Rx mg tablet #20 tabs Laboratory Tests 12/14/23 12/14/23 06:43 06:48 Sodium 138 mmol/L (137-145) Potassium 4.2 mmol/L (3.4-5.0) Chloride 102 mmol/L (98-107) Carbon Dioxide 27 mmol/L (22-30) Anion Gap 9 mmol/L (4-12) BUN 30 H mg/dL (7-17) Creatinine 1.00 mg/dL (0.7-1.0) Estim Creat Clear Calc 51 ml/min Estimated GFR 54 L (59 - ) Glucose 117 H mg/dL (65-110) POC Capillary Glucose 113 H mg/dl (65-105) Calcium 9.7 mg/dL (8.4-10.2) Patient hx anesthesia problems: none Family hx anesthesia problems: none Results Review: All pre-operative results and documents have been reviewed as part of the pre-operative evaluation. [facility] Past Medical History Medical History Arthritis Back pain Bilateral cataracts High blood pressure History of back problems History of thyrotoxicosis Nontoxic multinodular goiter Obesity Osteopenia Tear of meniscus of left knee Type 2 diabetes mellitus with diabetic neuropathy, unspecified Surgical History Surgical History History of colonoscopy (~2013) History of hysterectomy 12/2015 and 03/01/2020. Dr. Murray Mcpherson. History of tonsillectomy (~1951) History of tubal ligation (~1976) Family History Family History Mother Carcinoma of colon Patient's mother is Diabetes mellitus Sibling Family history of diabetes mellitus in first degree relative Diabetes mellitus Family history of malignant neoplasm of testis Father Patient's father is Other Family history of obesity Social History Social History Smoking status: Never smoker Alcohol intake: current Drinks per week: 1 Alcohol use details: 5 x per year Substance use: never Substance use type: does not use Lack of Transportation: No Lack of Food: Never True Current Housing: I Have Housing Concerned About Future Housing: No Difficulty Paying Gas/Electric Bills: No Difficulty Paying for Meds: No Currently Unemployed: No Education: High School Diploma
[2023-12-14] MEDS: ceFAZolin 2 GM/D5W 50 ML 2 GM/50 ML BAG IVPB (07:46)
[2023-12-14] MEDS: LIDOCAINE HCL 1% LOCAL INJ 20 ML VIAL 10 ML INFILTRATE (08:20)
[2023-12-14] MEDS: BUPIVACAINE/EPINEPHRINE 0.5% 50 ML VIAL 10 ML INFILTRATE (08:22)
[2023-12-14 09:20] LABS: Glucose Point of Care 126 mg/dl (65-105)
[2023-12-14] MEDS: fentaNYL CITRATE INJ (*CRX) 100 MCG/2 ML VIAL 25 MCG IV PUSH ×4 (09:33→09:46)
== END 2023-12-14 10:48 | disposition home or self-care (01) ==
PROVIDERS: Anesthesiology; PCP Nurse Practitioner; Visit Provider Anesthesiology Pain Medicine
PROC: (CPT 0275T; principal; 2023-12-14 07:30)
DX: M48.062 Spinal stenosis, lumbar region with neurogenic claudication (principal); M43.06 Spondylolysis, lumbar region; I10 Essential (primary) hypertension; E11.40 Type 2 diabetes mellitus with diabetic neuropathy, unspecified; G89.29 Other chronic pain; M85.88 Other specified disorders of bone density and structure, other site; E66.9 Obesity, unspecified; Z68.38 Body mass index [BMI] 38.0-38.9, adult; Z79.891 Long term (current) use of opiate analgesic; Z79.84 Long term (current) use of oral hypoglycemic drugs; Z98.890 Other specified postprocedural states; Z98.51 Tubal ligation status; Z80.0 Family history of malignant neoplasm of digestive organs; Z80.43 Family history of malignant neoplasm of testis; Z00.6 Encounter for examination for normal comparison and control in clinical research program
CPT/HCPCS: 0275T; 36415; 80048; 82948; 99199; C1889; J0690; J1100; J2405; J2704; J3010; J7120; Q9965

== ENCOUNTER 2024-01-22 10:33 | Outpatient (CLI) | payer MEDICARE, SELFPAY ==
--- NOTE | ~2024-01-22 | MM_ITS ---
EXAMINATION: MM screening [place] BI w ravi HISTORY: Screening TECHNIQUE: Craniocaudal and mediolateral oblique 3-D tomosynthesis images were obtained and synthetic 2-D images were generated. CAD analysis was submitted and interpreted. COMPARISON: Comparison to multiple prior studies sequentially, with oldest reviewed study dated 12/2014. BREAST PARENCHYMAL COMPOSITION: Not Dense: The breasts are almost entirely fatty. FINDINGS: There is no evidence of suspicious mass, calcification, or architectural distortion to sugg est malignancy in either breast. There has been no suspicious interval change. IMPRESSION: 1. No mammographic evidence of malignancy. 2. Recommend routine screening mammography in one year. BI-RADS Category 1: Negative Reviewed, dictated and finalized at location B.
== END 2024-01-22 10:34 | disposition home or self-care (01) ==
LOC: MICIMG 10:34
PROVIDERS: PCP Nurse Practitioner; Visit Provider Nurse Practitioner
DX: Z12.31 Encounter for screening mammogram for malignant neoplasm of breast (principal)
CPT/HCPCS: 77063; 77067

== ENCOUNTER 2024-03-08 08:45 | Outpatient (RCR) | payer MEDICARE, SELFPAY ==
--- NOTE | 2023-12-11 16:22 | PTOPEVAL1 ---
Assessment and note entered by Kj Quick, PT Evaluation Information Assessment Status Evaluation Diagnosis Lumbar spinal stenosis ICD-10 Condition Codes (PT) Pain in low back M54.50 Onset 10+ years Subjective Information Reports that she has had back pain for years. She has had imaging and has been through therapy with no long-term improvement. She has weakness in her legs and notices discomfort at night. The pain is an ache. She fatigues quickly with prolonged standing. She does better when she is in motion. She sleeps on her side. Hooklying helps her as well. Reported Pain Level Pain Score 4: Self Report Assessment PT Clinical Summary Patient presents with poor core strength, leg weakness, and altered gait. We had extensive discussion about follow up form procedure and long-term goals for surgical recovery. Patient reported preparedness for surgery and had no questions about follow up when therapy will be initiated. Plan of Care PT Services Indicated Yes Treatment Frequency and Re-evaluate 01/01/24 per protocol. Plan of care to Duration be set at this time. These treatments will address the objective and functional deficits as defined above. The patient will be advanced safely and appropriately in order for the patient to progress towards his/her prior level of function. Additional exercises will be introduced and as well as a comprehensive home exercise program upon discharge, if needed, ?to ensure carryover of functional gains achieved in the clinic. This treatment plan has been reviewed and agreement upon by the patient.
--- NOTE | 2024-01-01 11:24 | OPREHPOC ---
Outpatient Therapy Plan of Care This is a Multidisciplinary Plan of Care that may contain components documented by all disciplines (PT, OT, and ST.) PT Problem 1 PT Problem #1 Knowledge Deficit PT Goal 1 Goal / Goal Update [place] with HEP Target Visit 4 PT Problem 2 PT Problem #2 Impaired Strength PT Goal 1 Goal / Goal Update Improve chaparro hip abduction strength to 4/5 to improve lateral stability with core control Target Visit 8 PT Problem 3 PT Problem #3 Impaired Gait PT Goal 1 Goal / Goal Update Improve 2 minute walk test to 450' with no increased pain Target Visit 8 PT Goal 2 Goal / Goal Update Demonstrate improve gait stability indicated by reduced trunk lean with ambulation. Target Visit 8 PT Problem 4 PT Problem #4 Pain PT Goal 1 Goal / Goal Update Report 75% improvement in intensity and frequency of leg pain Target Visit 8
--- NOTE | 2024-01-01 11:24 | PTOPEVAL1 ---
Assessment and note entered by Kj Quick, PT Evaluation Information Assessment Status Re-evaluation Diagnosis Lumbar spinal stenosis ICD-10 Condition Codes (PT) Pain in low back M54.50 Onset 10+ years Subjective Information Reports that following the procedure she feels she is about the same at this point. Reports that she feel she may have more pain in her legs at this time. She was told that she needs to be patient to allow for healing. Her symptoms are hit or miss at this point. She is sleeping in bed on her side. Has been getting foot cramps and restless legs. Reported Pain Level Pain Score 4: Self Report Assessment PT Clinical Summary Patient presents with core weakness, hip weakness, and altered gait with poor body mechanics. Patient is 2 weeks post MILD procedure and will benefit form skilled therapy to improve functional mobility, core strength, and gross function for ADL performance. No concerns at this time moving forward. Plan of Care PT Services Indicated Yes Treatment Frequency and 2x/week for 8 visits Duration These treatments will address the objective and functional deficits as defined above. The patient will be advanced safely and appropriately in order for the patient to progress towards his/her prior level of function. Additional exercises will be introduced and as well as a comprehensive home exercise program upon discharge, if needed, ?to ensure carryover of functional gains achieved in the clinic. This treatment plan has been reviewed and agreement upon by the patient.
--- NOTE | 2024-01-20 09:50 | PCPTNOTE ---
Treatment canceled this date due to no insurance authorization.
--- NOTE | 2024-03-08 09:54 | OPREHPOC ---
Outpatient Therapy Plan of Care This is a Multidisciplinary Plan of Care that may contain components documented by all disciplines (PT, OT, and ST.) PT Problem 1 PT Problem #1 Knowledge Deficit PT Goal 1 Goal / Goal Update [place] with HEP Target Visit 4 Progress Met PT Problem 2 PT Problem #2 Impaired Strength PT Goal 1 Goal / Goal Update Improve chaparro hip abduction strength to 4/5 to improve lateral stability with core control Target Visit 8 Progress Partially Met PT Problem 3 PT Problem #3 Impaired Gait PT Goal 1 Goal / Goal Update Improve 2 minute walk test to 450' with no increased pain Target Visit 8 Progress Met PT Goal 2 Goal / Goal Update Demonstrate improve gait stability indicated by reduced trunk lean with ambulation. Target Visit 8 Progress Partially Met PT Problem 4 PT Problem #4 Pain PT Goal 1 Goal / Goal Update Report 75% improvement in intensity and frequency of leg pain Target Visit 8 Progress Met
--- NOTE | 2024-03-08 09:54 | PTOPDC ---
Assessment and note entered by Kj Quick, PT Evaluation Information Assessment Status Discharge Diagnosis Lumbar spinal stenosis ICD-10 Condition Codes (PT) Pain in low back M54.50 Onset 10+ years Subjective Information Reports that overall she is better. Still having discomfort on chaparro glutes and sides of hips but is improved from initial evaluation. Majority of pain that she is having in on her left leg and lateral hip. She continues to have a difficult time standing still but is able to improve with walking . Reported Pain Level Pain Score 2: Self Report Assessment PT Clinical Summary Patient has made progress with hip ROM, strength, and core stabilization indicated through objective measures. She continues to have some difficulty with ambulation but pain also decreases with ambulation. Patient demonstrates understanding of HEP and will continue with performance for adjunct faculty for medical terminology hip stabilization to reduce knee and hip pain . Plan of Care PT Services Indicated D/C to HEP
== END 2024-03-08 11:53 | disposition home or self-care (01) ==
LOC: ANHGOSHPT 08:45
PROVIDERS: PCP Nurse Practitioner; Visit Provider Anesthesiology Pain Medicine
DX: M48.062 Spinal stenosis, lumbar region with neurogenic claudication (principal)
CPT/HCPCS: 97014; 97110; 97116; 97140; 97161; 97164; 97530; G0283

== ENCOUNTER 2024-10-11 06:54 | Day surgery (SDC) | payer MEDICARE, SELFPAY ==
[2024-10-07 10:40] VITALS: BMI 38.6
--- NOTE | ~2024-10-11 | XR_ITS ---
INTRAOPERATIVE FLUOROSCOPY: CLINICAL HISTORY: 79 years old Female; DIAG PROG BILATERAL L3 L4 L5 MEDIAL BRANCH DORSAL RAMUS PROCEDURE COMMENTS: Limited intraoperative fluoroscopy of the lumbar spine was performed. CUMULATIVE DOSE: 73 mGy FLUOROSCOPY TIME: 99.3 seconds FINDINGS/IMPRESSION: Please refer to operative note for further details. Reviewed, dictated and finalized at location A.
[2024-10-11 07:50] VITALS: BP 157/78; PULSE 74; RESP 16; TEMP 36.6; O2SAT 98
--- NOTE | 2024-10-11 08:10 | WPDHPUPDATE1 ---
History and Physical Update Update Date/Time: 10/11/24 08:10 History and Physical has been reviewed, including an updated exam of the patient. There are NO changes in the patient's condition. Risks, benefits, and alternatives have been discussed and questions answered. Patient agrees to proceed with procedure.
--- NOTE | 2024-10-11 08:11 | P.OP_ITS ---
Procedure Note - Detailed Date of Procedure 10/11/24 Pre-op Diagnosis Spinal Stenosis, Lumbar Region w/Neurogenic Post-op Diagnosis Same Procedure Performed Diagnostic bilateral Lumbar Medial Branch/Dorsal Ramus Blocks at L3, L4, L5 Treating the bilateral L4-5, L5-S1 Facet Joints Under Fluoroscopic Guidance and with Contrast Control. (4 levels blocked). Surgeon Shashank Yeboah MD Electron Beam Photo Mask Maker None. Anesthesia Local Description of Procedure INFORMED CONSENT: Risks, benefits and alternatives to the procedure were discussed in detail with the patient who expressed explicit understanding and consent to proceed. Patient was informed verbally and in written form regarding the risks associated with the procedure including the low risk of serious infection, bleeding/bruising, allergic reaction, nerve or organ injury, paralysis, procedural site pain or discomfort, worsening pain and/or mobility, failure to treat and/or disfigurement. The patient expressed explicit understanding and consent to proceed. All materials required for the procedure were available prior to procedure start. Site and side were marked prior to procedure and confirmed in the presence of the patient. PROCEDURE IN DETAIL: The patient was brought to the procedural suite and placed in the prone position. Patient was made comfortable with use of pillows under the head/chest, hips and ankles. Skin overlying the injection site on the affected side(s) was prepared broadly with ChloraPrep applicator and draped in a sterile manner. Aseptic technique was used throughout. The endplates of the vertebral bodies at the site(s) of interest were aligned in the AP view. Ipsilateral oblique angulation was utilized to optimize visualization of the intersection between the superior articulating process and transverse process at each target site. Local anesthesia was established by infiltration with approximately 5 mL of 1% lidocaine via a 1-1/2 inch 27-gauge needle. A 25-gauge 5.0 inch Quincke spinal needle was advanced until the needle tip contacted periosteum at the target site, right L3. Lateral view was utilized to confirm the appropriate placement of the needle tip just anterior to the facet line and superior to the pedicle. In the Lateral view, 0.25 mL of Omnipaque 300 contrast medium was injected after negative aspiration for CSF, blood or other bodily fluid, showing appropriate extra-articular spread of contrast without evidence of intravascular, foraminal or intrathecal placement. A 0.5 mL solution of 0.5% PF bupivacaine was injected after negative repeat aspiration. Appropriate spread of the injectate was confirmed with washout of previously injected contrast. No parasthesias were elicited. Needle was removed completely intact without difficulty. The same exact procedure was repeated for all remaining levels on the ipsilateral side, right L4, L5 medial branches/dorsal ramus, modified as necessary to accommodate for the new target location with identical findings and results and no evidence of complication. The same exact procedure was repeated for all remaining levels on the contralateral side, left L3, L4, L5 medial branches/dorsal ramus, modified as necessary to accommodate for the new target location with identical findings and results and no evidence of complication. Images were saved and documented in the patient chart. Patient's skin was cleaned and sterile bandage applied. The patient tolerated the procedure well. The patient was transported to the recovery area in stable condition where they were observed for an appropriate amount of time prior to discharge, without evidence of complication. Patient was instructed on the appropriate completion of a pain diary over the next 12-24 hours. The patient was instructed to avoid excessive activity for the next 48 hours, including climbing and frequent use of stairs. Showers only for 48 hours. They were instructed not to drive or operate heavy machinery for 24 hours. They are to monitor for severe headaches, fevers, chills, night sweats, erythema/swelling at the site or any other signs of infection, bleeding/bruising, bowel or bladder changes as well as new pain, weakness or numbness in the upper or lower extremity. Should they notice these changes, they are instructed to call our office immediately or report directly to the nearest Emergency Department if no answer or if after posted office hours. COMPLICATIONS: None COMMENTS: None CONTRAST WASTED: 28.5mL Omnipaque 300. Complications No immediate complications Condition Stable Disposition Same day [facility] Billing Surgery - Charge Forward: Surgery Billing
[2024-10-11 08:42] VITALS: BP 182/88; PULSE 69; RESP 19; O2SAT 97
[2024-10-11 08:47] VITALS: BP 170/79; PULSE 67; RESP 16; O2SAT 95
[2024-10-11 08:54] VITALS: BP 168/70; PULSE 65; RESP 16; O2SAT 97
[2024-10-11] MEDS: BUPivacaine HCL 0.5% 10 ML AMP 5 ML INFILTRATE (08:55)
[2024-10-11] MEDS: LIDOCAINE 1% PF INJ 5 ML VIAL INFILTRATE (08:55)
[2024-10-11 08:59] VITALS: BP 162/75; PULSE 65; RESP 20; O2SAT 97
== END 2024-10-11 09:12 | disposition home or self-care (01) ==
PROVIDERS: PCP Nurse Practitioner; Visit Provider Anesthesiology Pain Medicine
PROC: (CPT 64493; principal; 2024-10-11 08:30)
DX: M48.062 Spinal stenosis, lumbar region with neurogenic claudication (principal); M43.16 Spondylolisthesis, lumbar region; M46.1 Sacroiliitis, not elsewhere classified; M54.51 Vertebrogenic low back pain; G89.29 Other chronic pain; M47.817 Spondylosis without myelopathy or radiculopathy, lumbosacral region
CPT/HCPCS: 64493; 64494 ×2; 64495 ×2; 99199

== ENCOUNTER 2024-11-07 07:18 | Day surgery (SDC) | payer MEDICARE, SELFPAY ==
--- NOTE | ~2024-11-07 | XR_ITS ---
XR fluoroscopy no charge Indication: Bilateral L3, L4 and L5 medial branch injection TECHNIQUE: Fluoroscopy used during Bilateral L3, L4 and L5 medial branch injection performed by [Shashank Yeboah MD] on 11/07/2024. 63 seconds of fluoroscopy with 11 fluoroscopic images captured. FINDINGS: Correlate with procedure note. IMPRESSION: Fluoroscopy used during Bilateral L3, L4 and L5 medial branch injection. Reviewed, dictated and finalized at location A. IMPRESSION: Fluoroscopy used during Bilateral L3, L4 and L5 medial branch injec tion.
--- NOTE | 2024-11-07 07:08 | WPDHPUPDATE1 ---
History and Physical Update Update Date/Time: 11/07/24 07:08 History and Physical has been reviewed, including an updated exam of the patient. There are NO changes in the patient's condition. Risks, benefits, and alternatives have been discussed and questions answered. Patient agrees to proceed with procedure.
--- NOTE | 2024-11-07 07:09 | W.PM.PROC2 ---
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 (4 levels blocked). Surgeon Shashank Yeboah MD Family Services Specialist None. Anesthesia Local Description of Procedure INFORMED CONSENT: Risks, benefits and alternatives to the procedure were discussed in detail with the patient who expressed explicit understanding and consent to proceed. Patient was informed verbally and in written form regarding the risks associated with the procedure including the low risk of serious infection, bleeding/bruising, allergic reaction, nerve or organ injury, paralysis, procedural site pain or discomfort, worsening pain and/or mobility, failure to treat and/or disfigurement. The patient expressed explicit understanding and consent to proceed. All materials required for the procedure were available prior to procedure start. Site and side were marked prior to procedure and confirmed in the presence of the patient. PROCEDURE IN DETAIL: The patient was brought to the procedural suite and placed in the prone position. Patient was made comfortable with use of pillows under the head/chest, hips and ankles. Skin overlying the injection site on the affected side(s) was prepared broadly with ChloraPrep applicator and draped in a sterile manner. Aseptic technique was used throughout. The endplates of the vertebral bodies at the site(s) of interest were aligned in the AP view. Ipsilateral oblique angulation was utilized to optimize visualization of the intersection between the superior articulating process and transverse process at each target site. Local anesthesia was established by infiltration with approximately 5 mL of 1% lidocaine via a 1-1/2 inch 27-gauge needle. A 25-gauge 3.5 inch Quincke spinal needle was advanced until the needle tip contacted periosteum at the target site, right L3. Lateral view was utilized to confirm the appropriate placement of the needle tip just anterior to the facet line and superior to the pedicle. In the Lateral view, 0.25 mL of Omnipaque 300 contrast medium was injected after negative aspiration for CSF, blood or other bodily fluid, showing appropriate extra-articular spread of contrast without evidence of intravascular, foraminal or intrathecal placement. A 0.5 mL solution of 2.0% PF lidocaine was injected after negative repeat aspiration. Appropriate spread of the injectate was confirmed with washout of previously injected contrast. No parasthesias were elicited. Needle was removed completely intact without difficulty. The same exact procedure was repeated for all remaining levels on the ipsilateral side, right L4, L5 medial branches/dorsal ramus, modified as necessary to accommodate for the new target location with identical findings and results and no evidence of complication. The same exact procedure was repeated for all remaining levels on the contralateral side, left L3, L4, L5 medial branches/dorsal ramus, modified as necessary to accommodate for the new target location with identical findings and results and no evidence of complication. Images were saved and documented in the patient chart. Patient's skin was cleaned and sterile bandage applied. The patient tolerated the procedure well. The patient was transported to the recovery area in stable condition where they were observed for an appropriate amount of time prior to discharge, without evidence of complication. Patient was instructed on the appropriate completion of a pain diary over the next 12-24 hours. The patient was instructed to avoid excessive activity for the next 48 hours, including climbing and frequent use of stairs. Showers only for 48 hours. They were instructed not to drive or operate heavy machinery for 24 hours. They are to monitor for severe headaches, fevers, chills, night sweats, erythema/swelling at the site or any other signs of infection, bleeding/bruising, bowel or bladder changes as well as new pain, weakness or numbness in the upper or lower extremity. Should they notice these changes, they are instructed to call our office immediately or report directly to the nearest Emergency Department if no answer or if after posted office hours. COMPLICATIONS: None COMMENTS: None CONTRAST WASTED: 28.5mL Omnipaque 300. Complications No immediate complications Condition Stable Disposition Same day [facility] Billing Surgery - Charge Forward: Surgery Billing
--- OUTSIDE RECORDS SUMMARY | 2024-11-07 07:21 | XMS_ITS | Referral Summary ---
Author Organization [facility] Physician Office Building [address] [place] [id number] Care Team Providers Care Package Lift Operator Name Role Phone Ryan Brown DO Primary Care Provider [phone] Encounters Date Type Department Care Team Description 09/15/2024 Results Follow-Up [facility] Diabetes and Endocrinology [address] [place] [id number] Rosina Chavez NP T4, free, T3, free, TSH 09/14/2024 4:33 PM CDT - 09/14/2024 11:59 PM CDT Hospital Encounter [address] [address] Toxic multinodular goiter Discharge Disposition: Discharge to home or self care 09/14/2024 10:15 AM CDT Lab [facility] Outpatient Lab at [address] [phone] 09/14/2024 9:00 AM CDT Office Visit [facility] Diabetes and Endocrinology [address] [place] [id number] Rosina Chavez NP Toxic multinodular goiter (Primary Dx) from Last 3 Months Allergies Active Allergy Reactions Criticality Noted Date Comments Shellfish Containing Products Unknown 2019 Sulfa (Sulfonamide Antibiotics) Unknown 04/21 Medications vitamin B complex with C-folic acid (NEPHROCAP) 1 mg capsuleIndicatio ns:Vitamin Deficiency Prevention 1 capsule Active magnesium gluconate 200 mg tabletIndication s:hypomagnesemia Take 1 tablet (200 mg total) by mouth 2 (two) times a day Active cholecalciferol (VITAMIN D-3) 2000 unit tablet Take 1 tablet (2,000 Units total) by mouth daily Active omeprazole (PriLOSEC) 20 mg capsule Take 1 capsule (20 mg total) by mouth daily as needed Active atorvastatin (LIPITOR) 10 mg tablet Take 1 tablet (10 mg total) by mouth nightly at bedtime 12/17/19 23 Active lisinopriL (PRINIVIL,ZESTRI L) 5 mg tablet Take 1 tablet (5 mg total) by mouth daily 01/16/20 23 Active cyclobenzaprine (FLEXERIL) 5 mg tablet TAKE 1 TABLET BY MOUTH EVERY 8 HOURS NEEDED FOR POSTOPERATIVE MUSCLE SPASMS 12/14/19 24 Active HYDROcodone-acet aminophen (NORCO) 5-325 mg per tablet 12/14/19 24 Active metFORMIN (GLUCOPHAGE) 500 mg tablet 12/29/19 24 Active rOPINIRole (REQUIP) 0.5 mg tablet Take 1 tablet (0.5 mg total) by mouth daily 08/19/19 25 Active methIMAzole (TAPAZOLE) 5 mg tabletIndication s:Toxic multinodular goiter Take 1 tablet (5 mg total) by mouth 6 (six) times a week TAKE 1 TABLET BY MOUTH 6 DAYS A WEEK. NONE ON SUNDAYS 72 tablet 3 09/15/19 25 026 Active Active Problems Problem Noted Date Diagnosed Date Class 2 obesity due to excess calories in adult 09/20/2019 Assessment & Plan (09/20/2019 11:19 AM CDT): Diet and exercise Advised on restarting phentermine as prescribed by her PCP Hyperglycemia 09/20/2019 Assessment & Plan (03/12/2021 1:38 PM COMPENSATION AND BENEFITS MANAGER): Diet and exercise Check hba1c Toxic multinodular goiter 05/10/2019 Assessment & Plan (09/14/2024 9:35 AM CDT): Chronic problem. Asymptomatic currently on methimazole 5mg Thursday-Thursday; none on Thursday. Has never been on the 5 days weekly. Will update labs today. Verified that she uses mychart. Aware to check results/results letter in mychart. Will contact by phone if needed. Assessment & Plan (03/21/2024 9:34 AM COMPENSATION AND BENEFITS MANAGER): Chronic problem. Asymptomatic currently on methimazole 5mg Thursday-Thursday; none on weekend. Will update labs today. Verified that she uses mychart. Aware to check results/results letter in mychart. Will contact by phone if needed. Assessment & Plan (09/24/2023 10:18 AM CDT): Chronic, probably off, midly hyper. Update TFTs Will adjust dose of tapazole if indicated. Assessment & Plan (02/24/2023 11:41 AM COMPENSATION AND BENEFITS MANAGER): Chronic, well controlled Continue Methimazole Update TFTs Assessment & Plan (09/05/2021 12:55 PM CDT): Chronic stable problem, clinically euthyroid. Update labs today. Assessment & Plan (03/12/2021 1:38 PM COMPENSATION AND BENEFITS MANAGER): Thyroid function tests requested. Tapazole dose adjusted, accordingly Assessment & Plan (09/11/2020 11:25 AM CDT): Thyroid function tests requested. Will adjust dose of Tapazole accordingly Assessment & Plan (03/27/2020 9:57 AM COMPENSATION AND BENEFITS MANAGER): Thyroid function tests requested. Will adjust dose of Tapazole accordingly Assessment & Plan (09/20/2019 11:19 AM CDT): Methimazole, 5 mg , 5 days a week Recheck labs in 2 m 6 m f./u Assessment & Plan (05/10/2019 10:05 AM COMPENSATION AND BENEFITS MANAGER): The pathophysiology of the condition was explained, in detail to the patient. I explained to the patient how very often relatively mild hyperthyroidism from multinodular goiter is asymptomatic but it can have detrimental effects in the heart in the bone, main reason for the treatment This seems like her thyroid levels are now in the low side as per elevated TSH I advised the patient to lower the Tapazole to 5 mg 5 days a week only and do not take any on the weekend Will recheck thyroid function today and again in 2 months Follow-up in 4 months Immunizations Immunization Administration Dates Next Due Influenza, Quadrivalent, Hig h Dose, Preservative Free, Intrr 01/21/2020 Influenza, Trivalent, IM (MDV) 04/29/2012 Social History Tobacco Use Types Packs/Day Years Used Date Smoking Tobacco: Never Smokeless Tobacco: Never Alcohol Use Standard Drinks/Week Comments Not Currently 0 (1 standard drink = 0.6 oz pur e alcohol) PHQ-2 Answer Date Recorded PHQ-2 Total Score (If total score is 3 or more points, staff should administer the PHQ-9) 0 02/24/2023 Comments No Sex and Gender Information Value Date Recorded Sex Assigned at Not on file Legal Sex Female 7:54 AM COMPENSATION AND BENEFITS MANAGER Gender Identity Female 09/19/2019 7:28 PM CDT Sexual Orientation Straight 09/19/2019 7: 28 PM CDT Last Filed Vital Signs Vital Sign Reading Time Taken Comments Blood Pressure 118/76 09/14/2024 9:02 AM CDT Pulse 80 09/14/2024 9:02 AM CDT Temperature 36.2 C (97.1 F) 09/20/2019 10:40 AM CDT Respiratory Rate 18 09/14/2024 9:02 AM CDT Oxygen Saturation - - Inhaled Oxygen Concentration - - Weight 110.7 kg (244 lb) 09/14/2024 9:02 AM CDT Height 165.1 cm (5' 5) 09/14/2024 9:02 AM CDT Body Mass Index 40.6 09/14/2024 9:02 AM CDT Plan of Treatment Not on file Procedures Procedure Name Priority Date/Time Associated Diagnosis Comments TSH Routine 09/14/2024 8:00 AM CDT Toxic multinodular goiter T3, FREE Routine 09/14/2024 8:00 AM CDT Toxic multinodular goiter T4, FREE Routine 09/14/2024 8:00 AM CDT Toxic multinodular goiter from Last 3 Months Results * T3, free (09/14/2024 8:00 AM CDT) Free T3 4.1 2.0 - 4.4 pg/mL Blood 09/14/2024 8:00 AM CDT 09/14/2024 4:37 PM CDT us Rosina Gregg Chavez PROGRAM ATTENDANT LAB BLOOD ORDERABLES Dodie l Result Performing Organization Address City/State/[facility] Co de Phone Number MARCK GLEASON [phone] [address] [place] [address] * (ABNORMAL) TSH (09/14/2024 8:00 AM CDT) Thyroid Stimulating Hormone 0.08(L) 0.30 - 4.20 mcIUnit/mL Blood 09/14/2024 8:00 AM CDT 09/14/2024 4:37 PM CDT us Rosinarakel Chavez NP LAB BLOOD ORDERABLES Dodie l Result Performing Organization Address [facility] Co de Phone Number MARCK VICTORINO [phone] [address] [place] [address] * T4, free (09/14/2024 8:00 AM CDT) Free T4 1.23 0.90 - 1.70 ng/dL Blood 09/14/2024 8:00 AM CDT 09/14/2024 4:37 PM CDT us Rosinarakel Chavez PROGRAM ATTENDANT LAB BLOOD ORDERABLES Dodie l Result Performing Organization Address City/[facility] Co de Phone Number MARCK GLEASON [phone] [address] [place] [address] from Last 3 Months Insurance [facility] MEDICARE ADVANTAGE Care Teams Package Lift Operator Relationship Specialty Start Date End Date Ryan Brown DO PCP - General Internal Medicine 03/31/19
--- OUTSIDE RECORDS SUMMARY | 2024-11-07 07:21 | XMS_ITS | Clinical Summary ---
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 Asymptomatic currently on methimazole 5mg Thursday-Thursday; none on Thursday. Has never been on the 5 days weekly. Will update labs today. Verified that she uses mychart. Aware to check results/results letter in mychart. Will contact by phone if needed. Assessment & Plan (03/21/2024 9:34 AM MUSIC COORDINATOR): Chronic problem. Asymptomatic currently on methimazole 5mg Thursday-Thursday; none on weekend. Will update labs today. Verified that she uses mychart. Aware to check results/results letter in mychart. Will contact by phone if needed. Assessment & Plan (09/24/2023 10:18 AM CDT): Chronic, probably off, midly hyper. Update TFTs Will adjust dose of tapazole if indicated. Assessment & Plan (02/24/2023 11:41 AM MUSIC COORDINATOR): Chronic, well controlled Continue Methimazole Update TFTs Assessment & Plan (09/05/2021 12:55 PM CDT): Chronic stable problem, clinically euthyroid. Update labs today. Assessment & Plan (03/12/2021 1:38 PM MUSIC COORDINATOR): Thyroid function tests requested. Tapazole dose adjusted, accordingly Assessment & Plan (09/11/2020 11:25 AM CDT): Thyroid function tests requested. Will adjust dose of Tapazole accordingly Assessment & Plan (03/27/2020 9:57 AM MUSIC COORDINATOR): Thyroid function tests requested. Will adjust dose of Tapazole accordingly Assessment & Plan (09/20/2019 11:19 AM CDT): Methimazole, 5 mg , 5 days a week Recheck labs in 2 m 6 m f./u Assessment & Plan (05/10/2019 10:05 AM MUSIC COORDINATOR): The pathophysiology of the condition was explained, [...] in 2 months Follow-up in 4 months Encounters Date Type Department Care Team Description 09/15/2024 Results Follow-Up [facility] Diabetes and Endocrinology [address] [place] [phone] Rosina Chavez, DYLAN T4, free, T3, free, TSH 09/14/2024 4:33 PM CDT - 09/14/2024 11:59 PM CDT Hospital Encounter [address] [address] Toxic multinodular goiter Discharge Disposition: Discharge to home or self care 09/14/2024 10:15 AM CDT Lab [facility] Outpatient Lab at [address] [phone] 09/14/2024 9:00 AM CDT Office Visit [facility] Diabetes and Endocrinology [address] [place] [phone] Rosina Chavez, DYLAN Toxic multinodular goiter (Primary Dx) from Last 3 Months Immunizations Immunization Administration Dates Next Due Influenza, Quadrivalent, Hig h Dose, Preservative Free, Intrr 01/21/2020 Influenza, Trivalent, IM (MDV) 04/29/2012 Surgical History Surgery Date Site/Laterality Comments TONSILLECTOMY 04/20/1951 - 04/19/1952 TUBAL LIGATION COLONOSCOPY 04/20/2014 - 04/19/2015 HYSTERECTOMY 12/20/2015 - 01/18/2016 CATARACT EXTRACTION 04/20/2023 - 04/19/2024 Bilateral 05/2023 Medical History Medical History Date Comments Joint pain Type 2 diabetes mellitus (HCC) Osteopenia Thyrotoxicosis Arthritis Family History Medical History Relation Name Comments Cancer Brother Diabetes Brother Cancer Mother Diabetes Mother Relation Name Status Comments Brother Mother Social History Tobacco Use Types Packs/Day Years [...] on file Legal Sex Female 7:54 AM MUSIC COORDINATOR Gender Identity Female 09/19/2019 7:28 PM CDT Sexual Orientation Straight 09/19/2019 7: 28 PM CDT Obstetrics History Last Filed Vital Signs Vital Sign Reading [...] 09/14/2024 9:02 AM CDT Plan of Treatment Health Maintenance Due Date Last Done Comments Hepatitis C Screening 1945 Osteoporosis Screening-Bone Density Scan 1945 DTaP/Tdap/Td Vaccine (1 - Tdap) 1957 Hepatitis B Screening 1964 Pneumococcal vaccine 65+ (1 of 1 - PCV) 1996 Zoster Vaccine (1 of 2) 1996 Well Visit 65+ 06/23/2011 Depression Screening 02/25/2024 02/24/2023, 03/12/2021, 09/11/2020, Additional history exists Fall Risk Assessment 09/23/2024 09/24/2023, 02/25/20 Influenza Vaccine (Season Ended) 2024 01/21/20, 04/29/2012 Procedures Procedure Name Priority Date/Time Associated Diagnosis [...] CDT 09/14/2024 4:37 PM CDT us Rosina Chavez INTERNET SPECIALIST LAB BLOOD ORDERABLES Dodie l Result MARCK [address] [facility] [place] [address] * (ABNORMAL) TSH (09/14/2024 8:00 AM CDT) Thyroid Stimulating Hormone 0.08(L) 0.30 - 4.20 mcIUnit/mL Blood 09/14/2024 8:00 AM CDT 09/14/2024 4:37 PM CDT us Rosinarakel Chavez INTERNET SPECIALIST LAB BLOOD ORDERABLES Dodie l Result MARCK GLEASON [address] [facility] [place] [address] * T4, free (09/14/2024 8:00 AM CDT) Free T4 1.23 0.90 - 1.70 ng/dL Blood 09/14/2024 8:00 AM CDT 09/14/2024 4:37 PM CDT us Rosinarakel Chavez INTERNET SPECIALIST LAB BLOOD ORDERABLES Dodie l Result Performing Organization Address City/[facility]/ZIP Co de Phone Number MARCK GLEASON [address] [place] [address] from Last 3 Months Insurance [facility] MEDICARE ADVANTAGE [facility] MED[facility] Address: [facility] [address] [place] [address] Care Teams Sample Tester Grinder Relationship Specialty Start Date End Date Ryan Brown DO PCP - General Internal Medicine 03/31/19
--- OUTSIDE RECORDS SUMMARY | 2024-11-07 07:21 | XMS_ITS | Encounter Summary ---
Author Organization [facility] Healthcare Address [address] [place] [address] Care Team Providers Care Housing Manager Name Role Phone Ryan Brown DO Primary Care Provider [phone]- [phone] Encounter Details Date Type Department Care Team (Late st Contact Info) Description 09/15/2024 Results Follow-Up [facility] Diabetes and Endocrinology [address] [place] [phone] Rosina Chavez, MANAGER MARKETING COMMUNICATIONS [address] [facility] [address] [address] T4, free, T3, free, TSH Social History Tobacco Use Types Packs/Day Years [...] on file Legal Sex Female 7:54 AM INFLATABLE BUILDINGS LAMINATOR Gender Identity Female 09/19/2019 7:28 PM CDT Sexual Orientation Straight 09/19/2019 7: 28 PM CDT documented as of this encounter Miscellaneous Notes * Result Encounter Note - Rosina Chavez NP - 09/15/2024 1:56 PM CDT Glenny Salmeron, Your T4 has improved from 3 months ago. Please continue to take your Methimazole 5mg daily. We aren't going to decrease days taken at this time as the T4/T3 are normal. I'd like for you to repeat your labs in 3 months here in our office. I'll contact you via [employer] once I review those results. Please call or send a [employer] message if any questions. Thank you, Godwin Reed documented in this encounter Plan of Treatment Scheduled Orders Name Type Priority Associated Diagnoses Orde r Schedule T3, free Lab Routine Toxic multinodular goiter Expected: 12/16/2024 (Approximate), Expires: 09/15/2025 T4, free Lab Routine Toxic multinodular goiter Expected: 12/16/2024 (Approximate), Expires: 09/15/2025 TSH Lab Routine Toxic multinodular goiter Expected: 12/16/2024 (Approximate), Expires: 09/15/2025 documented as of this encounter Visit Diagnoses Diagnosis Toxic multinodular goiter- Primary Toxic multinodular goiter without mention of thyrotoxic crisis or storm documented in this encounter Care Teams Housing Manager Relationship Specialty Start Date End Date Ryan Brown DO PCP - General Internal Medicine 03/31/19 documented as of this encounter
[2024-11-07 07:31] VITALS: BP 177/95; PULSE 70; RESP 16; TEMP 36.1; O2SAT 100
[2024-11-07 07:54] VITALS: BMI 39.6
[2024-11-07 07:56] VITALS: BP 177/81; PULSE 74; RESP 15; O2SAT 96
[2024-11-07 08:06] VITALS: BP 165/77; PULSE 70; RESP 18; O2SAT 96
[2024-11-07] MEDS: LIDOCAINE 2% PF LOCAL INJ 5 ML VIAL INFILTRATE (08:06)
[2024-11-07] MEDS: LIDOCAINE 1% PF INJ 5 ML VIAL INFILTRATE (08:08)
[2024-11-07 08:14] VITALS: BP 158/80; PULSE 68; RESP 16; O2SAT 100
== END 2024-11-07 08:27 | disposition home or self-care (01) ==
LOC: ASC 07:20
PROVIDERS: PCP Internal Medicine; Visit Provider Anesthesiology Pain Medicine
PROC: (CPT 64493; principal; 2024-11-07 07:50)
DX: M47.817 Spondylosis without myelopathy or radiculopathy, lumbosacral region (principal)
CPT/HCPCS: 64493; 64494 ×2; 64495 ×2; 99199

== ENCOUNTER 2024-12-02 10:17 | Outpatient (CLI) | payer MEDICARE, SELFPAY ==
--- NOTE | ~2024-12-02 | MR_ITS ---
MRI of the lumbar spine Clinical History: Spondylosis Technique: Axial T2-weighted images, and sagittal T1-weighted, T2-weighted, and T2 fat-sat images wer e acquired. COMPARISON: 04/09/2022 Findings: There is no fracture the lumbar spine. There is 4 mm anterolisthesis of L3 over L4. No susp icious bone marrow signal abnormality seen. At L1-L2, there is no disc bulge or herniation. There is mild facet hypertrophy. No spinal canal sten osis. There is mild left neural foraminal narrowing, and moderate right neural foraminal narrowing. At L2-L3, there is mild disc bulge with mild facet hypertrophy. There is mild central canal stenosis. There is moderate to severe left neural foraminal narrowing, and moderate right neural foraminal leanna rowing. At L3-L4, there is diffuse disc bulge/protrusion with severe facet arthropathy, resulting in severe s carlos canal stenosis/thecal sac compression. There is moderate bilateral neural foraminal narrowing, right worse than left. At L4-L5, there is degenerative disc narrowing with diffuse disc bulge and superimposed left foramina l disc protrusion. There is mild to moderate facet hypertrophy. There is severe left neural foraminal compromise. Right neural foramen preserved. At L5-S1, there is no disc bulge or herniation. No spinal canal stenosis or neural foraminal narrowin g. Paravertebral soft tissues are unremarkable. Impression: Severe degenerative spondylosis at L3-L4 and L4-L5, as detailed above. Moderate degenerative spondylosis at L2-L3. 4 mm anterolisthesis of L3 over L4. Reviewed, dictated and finalized at [facility]. Impression: Severe degenerative spondylosis at L3-L4 and L4-L5, as detailed above. Moderate degenerative spondylosis at L2-L3. 4 mm anterolisthesis of L3 over L4.
== END 2024-12-02 10:18 | disposition home or self-care (01) ==
LOC: GOSHIMG 10:18
PROVIDERS: PCP Nurse Practitioner Adult Health; Visit Provider Nurse Practitioner Adult Health
DX: M47.817 Spondylosis without myelopathy or radiculopathy, lumbosacral region (principal); M48.062 Spinal stenosis, lumbar region with neurogenic claudication
CPT/HCPCS: 72148